=== PATIENT | male | born 1960 | race Caucasian/White ===

== ENCOUNTER 2022-03-23 15:31 | Emergency (ER) | payer OTHER ==
[~2022-03-23] VITALS: Ht 182.9 cm; Wt 102.5 kg
--- NOTE | 2022-03-23 15:50 | NUR ---
PT IS IN ROOM #2A. DR BENSON EVALUATED THE PT.
[2022-03-23] MEDS ORDERED: AMLO1CAP5 PO (16:14)
[2022-03-23] MEDS ORDERED: DULO20CA PO (16:14)
[2022-03-23] MEDS ORDERED: LAMO25TA5 PO (16:14)
[2022-03-23] MEDS ORDERED: GABA100C PO (16:14)
[2022-03-23] MEDS ORDERED: TRAZ-182 PO (16:14)
[2022-03-23 16:31] LABS: HEMATOCRIT 39.9 % (36.7-47.1); MEAN CORPUSCULAR HEMOGLOBIN 33.1 uug (23.8-33.4); MEAN CORPUSCULAR VOLUME 98.4 fL (73.0-96.2); PLATELET COUNT (AUTO) 255 K/uL (152-348)
[2022-03-23 16:41] LABS: ACETAMINOPHEN < 10.0 ug/mL (10-30)
[2022-03-23 16:57] LABS: CREATININE 1.4 mg/dL (0.6-1.3); ETHANOL < 3 MG/DL (0-0); POTASSIUM 4.3 mmol/L (3.5-5.1)
[2022-03-23 17:13] LABS: BILIRUBIN,DIRECT 0.1 mg/dL (0.0-0.2); BILIRUBIN,TOTAL 0.4 mg/dL (0.2-1.0); TOTAL PROTEIN, SERUM 7.2 g/dL (6.4-8.2)
[2022-03-23 17:15] LABS: THYROID STIMULATING HORMONE 0.256 mIU/mL (0.358-3.740)
[2022-03-23 18:59] LABS: *BILIRUBIN,URIN NEGATIVE (NEGATIVE); *BLOOD, URINE NEGATIVE (NEGATIVE); *CLARITY,URINE CLEAR (CLEAR); *COLOR,URINE YELLOW (YELLOW); *KETONES,URINE NEGATIVE (NEGATIVE); *UROBILINOGEN,URINE 0.2 E.U./dl (NORMAL); LEUKOCYTE ESTERASE ,URINE NEGATIVE (NEGATIVE); NITRITE, URINE NEGATIVE (NEGATIVE); PH,URINE 5.5 (5.0-8.0); UGLUCOSE NEGATIVE (NEGATIVE)
--- NOTE | 2022-03-23 19:00 | NUR ---
change of shift report from Landen MITCHELL
[2022-03-23 19:19] LABS: MAGNESIUM 2.1 mg/dL (1.8-2.4)
[2022-03-23 19:39] LABS: *AMPHETAMINE, URINE NEGATIVE (NEGATIVE); *CANNABINOID, URINE POSITIVE (NEGATIVE); *COCCAINE, URINE NEGATIVE (NEGATIVE); *OPIATE, URINE NEGATIVE (NEGATIVE)
[2022-03-23 21:12] LABS: *PHENCYCLIDINE SCREEN,URINE NEGATIVE (NEGATIVE)
--- NOTE | 2022-03-24 06:00 | NUR ---
Patient is a/ox4, NAD noted
--- NOTE | 2022-03-24 06:47 | NUR ---
Patient is discharged but refused to leave. Patient verbalized he feels "too weak and heavy"
--- NOTE | 2022-03-24 07:05 | NUR ---
change of shift report to Trish MITCHELL
--- NOTE | 2022-03-24 07:50 | NUR ---
Pt is awake A/O x4, verbaly responsive and cooperative. Pt states he has been depressed and willing to be admitted to a psych facility [facility]. COVID swab collected and sent to LAB.
--- NOTE | 2022-03-24 08:30 | NUR ---
breakfast tray provided, ate 100%. Denies pain and discomfort.
--- NOTE | 2022-03-24 08:44 | NUR ---
Pt is medically cleared by Dr Rodarte for possible admit to [facility].
--- NOTE | 2022-03-24 09:00 | NUR ---
Spoke to Laura GERMAN for pt's placement. Pt's info faxed to [facility] by Laura.
--- NOTE | 2022-03-24 10:05 | NUR ---
Social Work consult was requested for a patient in the emergency room for mental health resources. Patient is a 61-year-old male. Patient is alert and oriented X4. Patient presents with anxious mood and congruent affect. Patient states his primary service advocate contact is his brother, Hesham. SW was unable to ascertain the primary contact phone number. Patient states that he is currently living alone at [id number] [place] [id number] in a one-story house. Patient he is currently unemployed and receiving disability social security. Patient denies a history of substance abuse. Patient states he tried cannabis oil last night for the first time and the toxicology report is positive for cannabinoids. MONSERRAT provided the patient with substance abuse resources for [facility] [address] [facility] [address] ([phone]), [facility] [address] [facility] [address] ([phone]), and [address] [address] ([phone]). Patient states he has a history of depression. Patient states he has a therapist and psychiatrist that he has been seeing for a year and he takes Cymbalta for depression. MONSERRAT provided the patient with resources for [facility] [address] [facility] [address] [facility] [address] ([phone]) and [facility] [address] [place] [address] ([phone]). Patient denies suicidal or homicidal ideation. SW provided emotional support, validation and spoke about healthy coping strategies that he can use. Patient states his plan for discharge is to go home to [address] [place] [address]. MONSERRAT provided the patient with a taxi voucher for discharge.
--- NOTE | 2022-03-24 10:30 | NUR ---
Per MONSERRAT & pt is to be discharge home and to follow up w/ own PMD/Psychiatrist.
--- NOTE | 2022-03-24 11:08 | NUR ---
Patient discharged to home in stable condition. Written and verbal after care instructions given. Patient verbalizes understanding of instructions. Stressed follow up or return to ER for worsening s/s. Pt used walker to ambulate out of ER. ever goodman provided by
[2022-03-24 11:09] VITALS: BP 142/77
== END 2022-03-24 11:09 | disposition home or self-care (01) ==
LOC: ER 15:31
DX: R41.82 Altered mental status, unspecified (principal); F12.90 Cannabis use, unspecified, uncomplicated; R53.1 Weakness; Z88.1 Allergy status to other antibiotic agents; Z88.0 Allergy status to penicillin; S00.03XA Contusion of scalp, initial encounter; X58.XXXA Exposure to other specified factors, initial encounter; Y92.89 Other specified places as the place of occurrence of the external cause; Z20.822 Contact with and (suspected) exposure to COVID-19
CPT/HCPCS: 36415; 70450; 83735; 84443; 85025; A4663; C1758; G0480